=== PATIENT | female | born 1975 | race Caucasian/White ===

== ENCOUNTER 2017-07-11 18:59 | Emergency (ER) | payer OTHER ==
[~2017-07-11] VITALS: Ht 160 cm; Wt 101.2 kg
[~2017-07-11 18:59] MED LIST: HALO0.052 TOP; LISI5TAB3 PO; ULT/50 PO; [UNRECOGNIZED DRUG - OTHER]
[2017-07-11 19:03] VITALS: TEMP 37; Ht 160 cm; Wt 101.2 kg
[2017-07-11] MEDS ORDERED: SODIUM CHLORIDE 0.9% 1000ML 1,000 ML IV STA (19:28)
[2017-07-11] MEDS ORDERED: MoRPHine SULFATE 4 MG/ML 1 ML CARP\\VIAL IV STA (19:28)
[2017-07-11] MEDS ORDERED: ONDANSETRON INJ 2 MG/ML 2 ML VIAL IV STA (19:28)
--- NOTE | 2017-07-11 19:29 | EMERGENCY ROOM VISIT NOTE ---
History Report prepared by Janee: Vic Martinez Under the Supervision of: Dr. Rodney Aguirre M.D. First contact with patient: 19:18 Chief Complaint: GI ASSESSMENT Stated Complaint: LIVER ISSUES, ENLARGED SPLEEN, PAIN IN ABD Nursing Triage Summary: Liver and spleen problems. recely seen for them, prescribed meds History of Present Illness The patient is a 41 year old female who presents to the Emergency Room with complaints of abdominal pain that began 2 weeks ago. She rates her pain a 9/10 in severity. Over this time, she has been having abdominal swelling with abnormal weight gain. She is also nauseated. She denies any fevers, vomiting, injury, chest pain, or shortness of breath. She was seen in [place] [facility] yesterday and was diagnosed with cirrhosis of the liver an enlarged spleen, and a UTI. After she was discharged, she read through her paperwork and noticed that it said she was not supposed to take anti-inflammatories. She called [place] and they told her to stop taking her medications. She presents here because she is not being treated with anything anymore. She has a past medical history of hypertension. Source of History: patient, spouse/significant other Onset: 2 weeks ago Position: abdomen Symptom Intensity: 9/10 Quality: ache Timing: constant Associated Symptoms: + nausea, No fevers, No chest pain, No SOB, No vomiting Review of Systems See HPI for pertinent positives & negatives. A total of 10 systems reviewed and were otherwise negative. Past Medical & Surgical Medical Problems: (1) Cirrhosis of liver (2) HTN (hypertension) Old medical records were reviewed. Nurse's notes were reviewed and I agree with. Family History Patient reports no known family medical history. Social History Smoking Status: Current Every Day Smoker Smokeless Tobacco Use: No Alcohol Use: none Drug Use: none Marital Status: in relationship Housing Status: lives with significant other Occupation Status: employed Current/Historical Medications Scheduled Citalopram Hydrobromide (Celexa), 20 MG PO DAILY Lisinopril/Hctz (Zestoretic 20MG/12.5MG), 1 TAB PO DAILY Nitrofurantoin Monohyd Macrocr (Macrobid), 100 MG PO BID Prazosin Hcl (Minipress), 1 MG PO HS Scheduled PRN Clonazepam (Klonopin), 0.5 MG PO TID PRN for Anxiety Allergies Coded Allergies: Latex (Verified Allergy, Intermediate, Hives, 07/11/17) Physical Exam Vital Signs Date Time Temp Pulse Resp B/P (MAP) Pulse Ox O2 Delivery O2 Flow Rate FiO2 07/11/17 21:51 60 18 138/83 94 07/11/17 20:32 59 07/11/17 19:03 37.0 86 18 152/98 98 Room Air Physical Exam General: Non-ill appearing young female in no acute distress. HEENT: Normal cephalic atraumatic. Pupils are equal round and reactive to light. Extraocular movements are intact. Oropharynx is pink with moist mucous membranes. No swelling of the mouth lips or tongue. Neck: Supple with a midline trachea. No meningeal signs or stiffness, no JVD or bruits. No Stridor. Chest: Clear to auscultation bilaterally. No wheezes or rhonchi. No increased work of breathing. Heart: regular rate and rhythm. Abdomen: Soft, minimally diffusely tender, possibly distended without rebound guarding or rigidity. Extremities: No cyanosis clubbing or edema. No calf tenderness or assymetry Spine/Back. Non tender to palpation. No CVA tenderness Skin: Good turgor without rashes. Neurologic exam: Cranial nerves two through 12 are intact. Motor and sensation are intact and symmetrical throughout. Medical Decision & Procedures Laboratory Results 07/11/17 19:50 Red Blood Count 4.70, Mean Corpuscular Volume 81.1, Mean Corpuscular Hemoglobin 26.4, Mean Corpuscular Hemoglobin Concent 32.5, Mean Platelet Volume 10.3, Neutrophils (%) (Auto) 46.9, Lymphocytes (%) (Auto) 40.1, Monocytes (%) (Auto) 8.9, Eosinophils (%) (Auto) 3.5, Basophils (%) (Auto) 0.5, Neutrophils # (Auto) 3.58, Lymphocytes # (Auto) 3.07, Monocytes # (Auto) 0.68, Eosinophils # (Auto) 0.27, Basophils # (Auto) 0.04 07/11/17 19:50 Test 07/11/17 19:50 07/11/17 20:05 07/11/17 20:08 White Blood Count 7.65 K/uL (4.8-10.8) Red Blood Count 4.70 M/uL (4.2-5.4) Hemoglobin 12.4 g/dL (12.0-16.0) Hematocrit 38.1 % (37-47) Mean Corpuscular Volume 81.1 fL (80-100) Mean Corpuscular Hemoglobin 26.4 pg (25-34) Mean Corpuscular Hemoglobin Concent 32.5 g/dl (32-36) Platelet Count 130 K/uL (130-400) Mean Platelet Volume 10.3 fL (7.4-10.4) Neutrophils (%) (Auto) 46.9 % Lymphocytes (%) (Auto) 40.1 % Monocytes (%) (Auto) 8.9 % Eosinophils (%) (Auto) 3.5 % Basophils (%) (Auto) 0.5 % Neutrophils # (Auto) 3.58 K/uL (1.4-6.5) Lymphocytes # (Auto) 3.07 K/uL (1.2-3.4) Monocytes # (Auto) 0.68 K/uL (0.11-0.59) Eosinophils # (Auto) 0.27 K/uL (0-0.5) Basophils # (Auto) 0.04 K/uL (0-0.2) RDW Standard Deviation 51.3 fL (36.4-46.3) RDW Coefficient of Variation 17.2 % (11.5-14.5) Immature Granulocyte % (Auto) 0.1 % Immature Granulocyte # (Auto) 0.01 K/uL (0.00-0.02) Prothrombin Time 12.0 SECONDS (9.0-12.0) Prothromb Time International Ratio 1.1 (0.9-1.1) Activated Partial Thromboplast Time 28.6 SECONDS (21.0-31.0) Partial Thromboplastin Ratio 1.1 Anion Gap 7.0 mmol/L (3-11) Est Creatinine Clear Calc Drug Dose 122.5 ml/min Estimated GFR () 126.5 Estimated GFR (Non- 109.1 BUN/Creatinine Ratio 12.4 (10-20) Calcium Level 8.5 mg/dl (8.5-10.1) Total Bilirubin 0.8 mg/dl (0.2-1) Direct Bilirubin 0.4 mg/dl (0-0.2) Aspartate Amino Transf (AST/SGOT) 49 U/L (15-37) Alanine Aminotransferase (ALT/SGPT) 48 U/L (12-78) Alkaline Phosphatase 92 U/L (45-117) Total Protein 7.7 gm/dl (6.4-8.2) Albumin 3.3 gm/dl (3.4-5.0) Lipase 160 U/L (73-393) Human Chorionic Gonadotropin, Qual NEG (NEG) Urine Color DK YELLOW Urine Appearance TURBID (CLEAR) Urine pH 6.5 (4.5-7.5) Urine Specific [place] 1.021 (1.000-1.030) Urine Protein NEG (NEG) Urine Glucose (UA) NEG (NEG) Urine Ketones NEG (NEG) Urine Occult Blood NEG (NEG) Urine Nitrite POS (NEG) Urine Bilirubin NEG (NEG) Urine Urobilinogen POS (NEG) Urine Leukocyte Esterase LARGE (NEG) Urine WBC (Auto) >30 /hpf (0-5) Urine RBC (Auto) 5-10 /hpf (0-4) Urine Hyaline Casts (Auto) 0 /lpf (0-5) Urine Epithelial Cells (Auto) >30 /lpf (0-5) Urine Bacteria (Auto) 2+ (NEG) Urine Pathogenic Casts /lpf (0) Urine Mucus PRESENT (NONE PRSENT) Ammonia 51.0 umol/L (11-32) Date/Time Source Procedure Growth Status 07/11/17 20:05 Urine , Clean Catch Urine Culture - Final THREE TYPES OF ORGANSIMS PRESENT, ALL... Complete Laboratory studies as stated above per my review. Medications Administered Medications (Trade) Dose Ordered Sig/Roseann Route Start Time Stop Time Status Last Admin Dose Admin Sodium Chloride 1,000 ml @ 999 mls/hr Q1H1M STAT IV 07/11/17 19:28 07/11/17 20:28 DC 07/11/17 20:04 999 MLS/HR Morphine Sulfate (MoRPHine SULFATE INJ) 4 mg NOW STAT IV 07/11/17 19:28 07/11/17 19:31 DC 07/11/17 20:05 4 MG Ondansetron HCl (Zofran Inj) 4 mg NOW STAT IV 07/11/17 19:28 07/11/17 19:31 DC 07/11/17 20:05 4 MG Nitrofurantoin (Macrobid Homepack 100MG) 1 homepack UD ONCE PO 07/11/17 21:45 07/11/17 21:46 DC 07/11/17 21:51 1 HOMEPACK ECG Indication: abdominal pain Rate (beats per minute): 56 Rhythm: sinus bradycardia Findings: no acute ischemic change, other (Sinus arrhythmia) Comparison ECG Date: no prior available ED Course 1917: Past medical records reviewed. The patient was evaluated in room C6, and a complete history and physical examination were performed. 1927: Ordered Zofran Inj 4 mg IV, Morphine Sulfate 4 mg IV, Sodium Chloride 1000 ml @ 999 mls/hr IV 2129: Upon reevaluation, the patient is resting. I discussed the results and treatment plan with her. She verbalized agreement of the treatment plan. The patient was discharged home. Medical Decision Differentials include, but are not limited to; liver disease, infection, and electrolyte or metabolic abnormality. This patient comes in as described above. She was placed in room C5. She has continued diffuse abdominal pain . She had excessive workup done [place] yesterday. She is confused about the results. I had her results sent over here and reviewed them. I also obtained blood work here as well as establish an IV. She is given morphine 4 mg IV and Zofran 4 mg IV. EKG does not suggest acute coronary syndrome or arrhythmia. Her urinalysis suggest a UTI however there are some epithelial cells. I will put her on Macrobid rather than the Bactrim as it may be better with the liver potential problems. Her LFTs are normal. Ammonia is minimally elevated however she has nothing to suggest liver failure or asterixis. She had a CAT scan yesterday do not feel he needed repeat this she was feeling better she will be discharged home she will use Naprosyn or ibuprofen for pain, take with food. return if: increasing pain, worsening of symptoms, any problems concerns she has an appointment with her doctor on Sunday which she should keep . Medication Reconcilliation Current Medication List: was personally reviewed by me Blood Pressure Screening Patient's blood pressure: Elevated blood pressure Blood pressure disposition: Elevated BP felt to be situational Impression Primary Impression: Diffuse abdominal pain Additional Impression: UTI (urinary tract infection) Scribe Attestation The scribe's documentation has been prepared under my direction and personally reviewed by me in its entirety. I confirm that the note above accurately reflects all work, treatment, procedures, and medical decision making performed by me. Departure Information Dispostion Home / Self-Care Prescriptions Nitrofurantoin Monohyd Macrocr (Macrobid) 100 Mg Cap 100 MG PO BID for 7 Days, #14 CAP Prov: Rodney Aguirre M.D. 07/11/17 Referrals Gabrielle Jeffery Forms HOME CARE DOCUMENTATION FORM, IMPORTANT VISIT INFORMATION Patient Instructions My [facility] Additional Instructions Rest Drink plenty of fluids REturn if: Worsening of symptoms, fever or chills, increasing pain or problems, any new problems or concerns Use Macrobid 100 mg twice a day for 7 days antibiotic. Stop the Bactrim. May use the Naprosyn or ibuprofen if needed but take with food. Follow-up with your doctor, keep your appointment on Sunday. Problem Qualifiers
[2017-07-11] MEDS ORDERED: CITA20TA9 PO (19:46)
[2017-07-11] MEDS ORDERED: CLON0.5T3 PO (19:46)
[2017-07-11] MEDS ORDERED: PRAZ1CAP PO (19:46)
[2017-07-11] MEDS ORDERED: LISI-787 PO (19:46)
[2017-07-11 20:01] LABS: BASO % 0.5 %; BASO ABS # 0.04 K/uL (0-0.2); COMPLETE YES; EOS % 3.5 %; HEMATOCRIT 38.1 % (37-47); IG% 0.1 %; LYMPH % 40.1 %; LYMPH ABS # 3.07 K/uL (1.2-3.4); MEAN CELL VOLUME 81.1 fL (80-100); MEAN CORPUSCULAR HEMOGLOBIN 26.4 pg (25-34); MEAN CORPUSCULAR HGB CONC 32.5 g/dl (32-36); MEAN PLATELET VOLUME 10.3 fL (7.4-10.4); MONO % 8.9 %; NEUT % 46.9 %; PLATELET COUNT 130 K/uL (130-400); WHITE BLOOD COUNT 7.65 K/uL (4.8-10.8)
[2017-07-11 20:19] LABS: BUN/CREATININE RATIO 12.4 (10-20); CALCIUM 8.5 mg/dl (8.5-10.1); CREATININE 0.7 mg/dl (0.60-1.20); INR 1.1 (0.9-1.1); PARTIAL THROMBOPLASTIN RATIO 1.1; POTASSIUM 3.5 mmol/L (3.5-5.1)
[2017-07-11 20:40] LABS: URINE APPEARANCE TURBID (CLEAR); URINE COLOR DK YELLOW; URINE EPITHELIAL CELL AUTO >30 /lpf (0-5); URINE NITRITE POS (NEG); URINE PH 6.5 (4.5-7.5); URINE SPECIFIC GRAVITY 1.021 (1.000-1.030); UROBILINOGEN POS (NEG)
[2017-07-11 20:45] LABS: MANUAL MICROSCOPIC REQUIRED? NO; REVIEW REQ? YES
[2017-07-11 20:56] LABS: PREG INTERNAL NEGATIVE QC NEG CLEAR BACKGROUND; PREG INTERNAL POSITIVE QC POS CONTROL LINE
[2017-07-11 20:59] LABS: URINE BILIRUBIN NEG (NEG)
[2017-07-11 21:02] LABS: URINE MUCUS PRESENT (NONE PRSENT)
[2017-07-11] MEDS ORDERED: NITR-5 PO (21:29)
[2017-07-11] MEDS ORDERED: MACROBID 100MG HOME PACK 1 EA VIAL PO ONE (21:45)
[2017-07-11 21:51] VITALS: BP 138/83; PULSE 60; O2SAT 94
== END 2017-07-11 21:53 | disposition home or self-care (01) ==
LOC: C.EDB 19:01 → C.EDC 21:53
DX: N39.0 Urinary tract infection, site not specified (principal); K74.60 Unspecified cirrhosis of liver; I10 Essential (primary) hypertension; F17.200 Nicotine dependence, unspecified, uncomplicated